=== PATIENT | female | born 1980 | race Caucasian/White ===

== ENCOUNTER 2023-09-24 15:08 | Emergency (ER) | payer SELFPAY ==
[~2023-09-24] VITALS: Ht 162.6 cm; Wt 56.6 kg
[2023-09-24 15:27] VITALS: BP 128/86; PULSE 105; RESP 16; TEMP 98.9; O2SAT 99
[2023-09-24] MEDS ORDERED: DEXAMETHASONE 10 MG/ML VIAL IM ONE (16:15)
[2023-09-24] MEDS ORDERED: DIPHENHYDRAMINE 25MG CAPSULE PO ONE (16:15)
[2023-09-24] MEDS ORDERED: FAMOTIDINE 20MG TABLET PO ONE (16:15)
[2023-09-24] MEDS ORDERED: CEPH500C2 MT (16:39)
[2023-09-24] MEDS ORDERED: IBUP-2028 MT (16:39)
[2023-09-24] MEDS ORDERED: SULF1TAB48 MT ×2 (16:39)
[2023-09-24] MEDS ORDERED: ACET-2708 MT (16:39)
[2023-09-24] MEDS ORDERED: DIPH25CA83 MT (16:44)
[2023-09-24] MEDS ORDERED: DEX2 MT (16:44)
== END 2023-09-24 16:56 | disposition home or self-care (01) ==
LOC: ER 15:08
DX: R21 Rash and other nonspecific skin eruption (principal)
CPT/HCPCS: 99283